=== PATIENT | male | born 1950 | race Caucasian/White ===

== ENCOUNTER 2017-08-18 23:56 | Inpatient (IN) | payer MEDICAID, MEDICARE ==
[~2017-08-18] VITALS: Ht 177.8 cm; Wt 91.2 kg
--- NOTE | 2017-08-19 | NUR ---
[facility] FROM [facility] "ALTERED X24 HOURS". VSS NAD WILL CONTINUE TO MONITOR FOR ANY CHANGES DURING THE SHIFT.
--- NOTE | 2017-08-19 00:36 | NUR ---
PT OFF TO CT/XRAY
--- NOTE | 2017-08-19 00:47 | NUR ---
CALLED NURSING PRE PLANNING ADVISOR AND REQUESTED A TELE BED FOR THIS PT.
[2017-08-19] MEDS ORDERED: LIDOCAINE 2% JEL UROJET 10 ML MM ONE ×3 (00:51→02:30)
[2017-08-19 00:57] LABS: BASOPHILS % (AUTO) 0.2 % (0.0-2.0); HEMATOCRIT 30 % (39-51); HEMOGLOBIN 9.8 g/dL (13.5-17.5); LYMPHOCYTES # (AUTO) 0.4 /CMM (0.8-4.8); LYMPHOCYTES % (AUTO) 3.8 % (20.0-44.0); MEAN CORPUSCULAR HGB CONC 33 g/dl (31.0-36.0); MEAN CORPUSCULAR VOLUME 92 fL (80-96); MONOCYTES # (AUTO) 0.6 /CMM (0.1-1.30); MONOCYTES % (AUTO) 6.2 % (2.0-12.0); NEUTROPHILS # (AUTO) 8.6 /CMM (1.8-8.9); NEUTROPHILS % (AUTO) 89.8 % (43.0-81.0); PLATELET COUNT (AUTO) 293 /CMM (150-450); RDW COEFFICIENT OF VARIATION 15.7 (11.5-15.0); RED BLOOD CELL COUNT(AUTO) 3.26 MIL/uL (4.5-6.0); WHITE BLOOD COUNT (AUTO) 9.6 K/uL (4.3-11.0)
[2017-08-19] MEDS ORDERED: INSU100V7 SQ (01:01)
[2017-08-19] MEDS ORDERED: HYDR-552 PO (01:01)
[2017-08-19] MEDS ORDERED: ACET-2605 PO (01:01)
[2017-08-19] MEDS ORDERED: ACET325T53 PO (01:01)
[2017-08-19] MEDS ORDERED: HEPARIN SQ (01:01)
[2017-08-19] MEDS ORDERED: NITR0.4T48 SL (01:01)
[2017-08-19] MEDS ORDERED: INSU100V27 SQ (01:01)
[2017-08-19 01:11] LABS: INR 1.06 (0.87-1.13)
[2017-08-19 01:19] LABS: APPEARANCE,URINE CLEAR (CLEAR); BILIRUBIN,URINE NEGATIVE (NEGATIVE); BLOOD, URINE TRACE-INTA Ery/uL (NEGATIVE); COLOR,URINE YELLOW (YELLOW); KETONES,URINE NEGATIVE (NEGATIVE); LEUKOCYTE ESTERASE ,URINE NEGATIVE (NEGATIVE); NITRITE, URINE NEGATIVE (NEGATIVE); PROTEIN,URINE 3+ mg/dl (NEGATIVE); UGLUCOSE NEGATIVE (NEGATIVE); UROBILINOGEN,URINE 0.2 EU/dL (0.2)
[2017-08-19 01:19] LABS: ALANINE AMINOTRANSFERASE 38 U/L (12-78); ALBUMIN 3.1 g/dL (3.4-5.0); ALCOHOL, BLOOD < 3 mg/dL (0-0); ALKALINE PHOSPHATASE 113 U/L (46-116); ASPARTATE AMINOTRANSFERASE 58 U/L (15-37); BILIRUBIN,DIRECT 0.4 mg/dL (0.0-0.2); BILIRUBIN,TOTAL 0.7 mg/dL (0.2-1.0); CALCIUM, SERUM 9.5 mg/dL (8.5-10.1); CARBON DIOXIDE 26 mmol/L (21-32); CHLORIDE 106 mmol/L (98-107); CREATININE 3.8 mg/dL (0.6-1.3); GLUCOSE 65 mg/dL (74-106); POTASSIUM 6.1 mmol/L (3.5-5.1); SODIUM SERUM 141 mmol/L (136-145); TOTAL PROTEIN, SERUM 7.3 g/dL (6.4-8.2)
--- NOTE | 2017-08-19 01:20 | NUR ---
1200 CC OF URINE OUT OF IN/OUT CATH. POSSIBLE OBSTRUCTION.
[2017-08-19 01:23] LABS: SALICYLATE 1.8 mg/dL (2.8-20.0); SERUM AMMONIA 21 umol/L (11-32)
[2017-08-19 01:24] LABS: UREA NITROGEN, BLOOD 91 mg/dL (7-18)
[2017-08-19 01:25] LABS: THYROID STIMULATING HORMONE 1.053 uIU/mL (0.358-3.74); TROPONIN I 0.147 ng/mL (0.00-0.056)
[2017-08-19 01:26] LABS: ACETAMINOPHEN 0 ug/ml (10-30)
[2017-08-19 01:33] LABS: BACTERIA,URINE Few /HPF (None Seen); RBC,URINE 0-2 /HPF (0-2); SQUAMOUS EPITHELIAL CELL,UR Rare /HPF (None Seen)
[2017-08-19 01:34] LABS: URINE AMORPHOUS URATE Moderate /HPF (None Seen)
[2017-08-19] MEDS ORDERED: FUROSEMIDE 40 MG/4 ML VIAL IV ONE (02:30)
[2017-08-19] MEDS ORDERED: ASPIRIN 325 MG TABLET PO ONE (02:30)
[2017-08-19] MEDS ORDERED: NITROGLYCERIN PACKET 1 GM PACKET TD ONE (02:30)
[2017-08-19] MEDS ORDERED: FUROSEMIDE 40 MG/4 ML VIAL ONE (02:33)
[2017-08-19] MEDS ORDERED: NITROGLYCERIN PACKET 1 GM PACKET ONE (02:34)
[2017-08-19] MEDS ORDERED: ASPIRIN 81 MG TAB.CHEW ONE (02:34)
--- NOTE | 2017-08-19 02:43 | NUR ---
NEW BROTHERS CATH PLACED PER ORDER FROM JESUS LOVE. 300CC EMPTIED SO FAR. WILL CONTINUE TO MONITOR FOR ANY CHANGES.
--- NOTE | 2017-08-19 02:49 | NUR ---
PT COMFORTABLE IN BED ANSWERING QUESTIONS WHEN SPOKEN TO. PT IS MILDLY CONFUSED STILL
--- NOTE | 2017-08-19 03:14 | NUR ---
REPORT GIVEN TO CHARLIE
[2017-08-19 03:33] VITALS: BP 143/65
[2017-08-19 03:35] VITALS: BP 143/65
--- NOTE | 2017-08-19 03:35 | NUR ---
SAMPLER TESTER OPENING NOTES: RECEIVED PT FROM ER NURSE, PELON. PT APPEARS TO BE LETHARGIC. PT ABLE TO RECITE NAME AND LIMITED RESPONSES ONLY. PT IS A/OX1. PT ON 2LPM VIA NC. PT HAS IV ON L FOREARM #18G AND IS PATENT AND INTACT. PT HAS LEFT LEG IMMOBILIZER. PT HAS BROTHERS CATH AND IS ATTACHED TO DRAINAGE BAG WITH YELLOW URINE DRAINING. PT ALSO HAS NITROBID PATCH ON CHEST. BED ALARM ACTIVATED. PT TO BE PLACED ON TELE BOX. CALL LIGHT WITHIN PT'S REACH. BED KEPT IN LOW, LOCKED POSITION, AND SIDE RAILS X 2UP. WILL CONTINUE TO MONITOR PT.
--- NOTE | 2017-08-19 05:16 | NUR ---
VENETIAN BLIND MECHANIC NOTES: AWAITING FOR ADMITTING ORDERS. SONNY WILSON AWARE. NOTIFIED HER OF FEMUR X RAY FRACTURE AND TROPONIN 0.147
[2017-08-19] MEDS ORDERED: ENOXAPARIN SODIUM 40 MG/0.4 ML DISP.SYRIN SQ SCH (05:30)
[2017-08-19] MEDS ORDERED: MAGNESIUM HYDROXIDE 30 ML UDC PO PRN (05:30)
[2017-08-19] MEDS ORDERED: ZOLPIDEM TARTRATE 5 MG TABLET PO PRN (05:30)
[2017-08-19] MEDS ORDERED: Z GUARD REMEDY 2 OZ OINT TP PRN (05:30)
[2017-08-19] MEDS ORDERED: ACETAMINOPHEN 325 MG TABLET PO PRN (05:30)
[2017-08-19] MEDS ORDERED: IV NS 0.9% 1,000 ML IV PRN (05:30)
[2017-08-19] MEDS ORDERED: ONDANSETRON HCL/PF 4 MG/2 ML VIAL IVP PRN (05:30)
[2017-08-19] MEDS ORDERED: CEFTRIAXONE 1 G VIAL ONE (05:32)
[2017-08-19] MEDS: CEFTRIAXONE 1 G in IV D5W 50 ML IV SCH (05:35)
--- NOTE | 2017-08-19 07:19 | NUR ---
DIGITAL MEASUREMENT ADVISOR CLOSING NOTES: ALL NEEDS WERE ATTENDED AND ANTICIPATED FOR. PT REMAINS TO BE LETHARGIC. PT IS A/OX1. PT KEPT NPO FOR SWALLOW EVAL SCHEDULED TODAY. PT HAS IV AND IS BEING INFUSED WITH NS 75ML/HR. PT HAS BROTHERS CATH AND IS ATTACHED TO DRAINAGE BAG WITH YELLOW URINE DRAINING. OUTPUT WAS 550ML. BED ALARM ACTIVATED. CALL LIGHT WITHIN PT'S REACH. BED KEPT IN LOW, LOCKED POSITION, AND SIDE RAILS X 2UP. ENDORSED TO AM NURSE FOR CHRIS. Addendum: 08/19/17 at 0721 by NAHUM WEN RN PT ON TELE BOX AND READING SHOWS SR 60S WITH BBB.
[2017-08-19 08:00] VITALS: BP 178/81
--- NOTE | 2017-08-19 08:20 | NUR ---
ms rn received on bed, awake,alert, oriented x3,complaining of pain at left leg, s/p fall w/ left lg fracture, immobilizer on, will monitor patient's condition.
--- NOTE | 2017-08-19 09:00 | NUR ---
rn npo at this time, for swallow eval today.
[2017-08-19] MEDS ORDERED: BUMETANIDE INJ 8 MG in IV NS 0.9% 48 ML IV ONE (09:45)
--- NOTE | 2017-08-19 10:36 | NUR ---
WOUND CARE CONSULT: PT PRESENTS WITH MULTIPLE SKIN ISSUES INCLUDING DEEP TISSUE INJURY WHICH IS INTACT TO SACRUM, SCRATCHES TO BUTTOCKS AND THIGHS, RASH TO BUTTOCKS AND PERINEUM AND RAISED AREAS TO BACK AND SHOULDER, PRESENT ON ADMISSION. PT HAS IMMOBILIZER TO LEFT LOWER EXTREMITY. DEFER TO ORTHO FOR LEFT LOWER EXTREMITY. ALL SKIN PROTECTION AND WOUND RECOMMENDATIONS DISCUSSED WITH NURSING STAFF. RADHA ISOFLEX LOW AIRLOSS BED TO BE PLACED. WILL SEE PRN. JOLLEY IN AGREEMENT WITH PLAN OF CARE. CURRENT SACHIN SCORE IS 12. Addendum: 08/19/17 at 1038 by LONNIE BURCH WNDNU Amended: Links added.
--- NOTE | 2017-08-19 11:00 | NUR ---
ms rn swallow eval done, soft diet recommended.
[2017-08-19 11:06] LABS: CREATINE KINASE MB 10.2 ng/mL (0-3.6)
[2017-08-19] MEDS ORDERED: Calcium Gluconate 0.465 MEQ/ML VIAL IV ONE (14:00)
[2017-08-19] MEDS ORDERED: DEXTROSE 50%-WATER 50 ML DISP.SYRIN IVP ONE (14:00)
[2017-08-19] MEDS ORDERED: SODIUM BICARBONATE SYR 50 MEQ/50 ML DISP.SYRIN IV ONE (14:00)
[2017-08-19] MEDS ORDERED: INSULIN REGULAR, HUMAN 100 UNIT/ML 10 ML VIAL IV ONE (14:00)
--- NOTE | 2017-08-19 14:00 | NUR ---
ms bartlett received orders from dr. lei and carried out.
[2017-08-19] MEDS ORDERED: Calcium Gluconate 1GM/10ML 4.65 MEQ in IV D5W 50 ML IV ONE (14:30)
[2017-08-19] MEDS: HYDROCODONE/APAP 5/325MG 1 EACH TABLET PO PRN (15:37)
[2017-08-19] MEDS: CLOTRIMAZOLE 1% 15 GM TUBE TP SCH ×2 (15:40→18:28)
[2017-08-19 16:00] VITALS: BP 163/61
[2017-08-19 17:44] LABS: CALCIUM, SERUM 9.3 mg/dL (8.5-10.1); CREATININE 3.6 mg/dL (0.6-1.3); POTASSIUM 4.5 mmol/L (3.5-5.1)
--- NOTE | 2017-08-19 18:20 | NUR ---
ms rn on bed,no distress noted, labs trending down, k - 4.5 now,all needs attended.
--- NOTE | 2017-08-19 19:40 | NUR ---
ROOF MECHANIC INITIAL NOTE PT IS IN BED SLEEPING, AROUSES TO TOUCH AND LIGHT PAIN. A/O X2 LETHARGIC. WHEN SLEEPING HE HAS NO SIGNS OF SOB OR DISTRESS ONCE WOKEN UP HE SHIVERS AND STARTS BREATHING HEAVY BUT NO DISTRESS. DENIES PAIN AT THIS TIME. PT PULLED OUT HIS RIGHT FOREARM IV, LEFT FOREARM IS INTACT AND PATENT WITH BUMEX INFUSING. LEFT LEG HAS IMMOBILIZER, WITH SWELLING AND REDNESS IN FOOT. ELEVATED LEG AND APPLIED ICE. BED IS IN LOW AND LOCKED POSITION, CALL LIGHT WITHIN REACH. WILL CONTINUE TO MONITOR PT
[2017-08-19 20:00] VITALS: BP 139/71
[2017-08-19 20:47] LABS: CREATININE, URINE 35.8 MG/DL (30.0-125.0)
[2017-08-20] VITALS: BP 158/73
[2017-08-20] MEDS: HYDROCODONE/APAP 5/325MG 1 EACH TABLET PO PRN ×4 (00:06→22:22)
[2017-08-20 04:00] VITALS: BP 152/69
[2017-08-20] MEDS: CEFTRIAXONE 1 G in IV D5W 50 ML IV SCH (04:32)
--- NOTE | 2017-08-20 06:46 | NUR ---
HEAD UP OPERATOR HELPER CLOSING NOTE PT IS IN BED SLEEPING, AROUSES TO TOUCH. PT WAS MORE ALERT DURING THE NIGHT PROGRESSED, ABLE TO HOLD HIS OWN CUP FOR WATER AND INDEPENDENT WITH WATER INTAKE. TELE MONITOR SHOWS SR 62 WITH PAC, PVC AND BBB. BROTHERS CATHETER IS INTACT AND DRAINING. NO ACUTE CHANGES THROUGHOUT THE SHIFT. ALL NEEDS WERE ANTICIPATED AND MET. BED IS IN LOW AND LOCKED POSITION, CALL LIGHT WITHIN REACH. WILL ENDORSE TO DAYSHIFT
[2017-08-20 06:51] LABS: BASOPHILS % (AUTO) 0.2 % (0.0-2.0); HEMATOCRIT 28 % (39-51); HEMOGLOBIN 9.4 g/dL (13.5-17.5); LYMPHOCYTES # (AUTO) 0.6 /CMM (0.8-4.8); LYMPHOCYTES % (AUTO) 6.2 % (20.0-44.0); MEAN CORPUSCULAR HGB CONC 33 g/dl (31.0-36.0); MEAN CORPUSCULAR VOLUME 91 fL (80-96); MONOCYTES # (AUTO) 0.8 /CMM (0.1-1.30); NEUTROPHILS # (AUTO) 7.5 /CMM (1.8-8.9); NEUTROPHILS % (AUTO) 84.6 % (43.0-81.0); PLATELET COUNT (AUTO) 262 /CMM (150-450); RDW COEFFICIENT OF VARIATION 15.9 (11.5-15.0); RED BLOOD CELL COUNT(AUTO) 3.09 MIL/uL (4.5-6.0); WHITE BLOOD COUNT (AUTO) 8.9 K/uL (4.3-11.0)
--- NOTE | 2017-08-20 07:11 | NUR ---
MS RN OPENING NOTES RECEIVED PT FROM NIGHTSHIFT NURSE IN STABLE CONDITION. PT IS A/O X2-3 (PERSON, PLACE, TIME) WITH PERIODS OF FORGETFULNESS. NO SOB OR SIGNS OF ACUTE DISTRESS. BREATHING IS EVEN AND UNLABORED. PT IS ON 2L AND SATING WELL. HE DOES COMPLAIN OF AN ACHING PAIN IN HIS LEFT KNEE RATED 7/10. WILL ADMINISTER PRN PAIN MEDICATION. LEG IMMOBILIZER NOTED. EXTREMITIES OFFLOADED. IV TO LEFT FA NOTED TO BE PATENT AND INTACT. NO REDNESS OR SIGNS OF INFILTRATION NOTED. BROTHERS CATHETER NOTED TO BE DRAINING CLEAR YELLOW URINE. BROTHERS IN PLACE FOR URINARY RETENTION AND I&O MONITORING PER NIGHTSHIFT. BED IN LOW LOCKED POSITION, SIDE RAILS UP X3, CALL LIGHT WITHIN PT'S REACH, BED ALARM ON FOR SAFETY. WILL CONTINUE TO MONITOR
[2017-08-20 07:15] LABS: ALBUMIN 2.9 g/dL (3.4-5.0); BILIRUBIN,TOTAL 0.9 mg/dL (0.2-1.0); CALCIUM, SERUM 9.2 mg/dL (8.5-10.1); CREATININE 3.5 mg/dL (0.6-1.3); MAGNESIUM 2.4 mg/dL (1.8-2.4); PHOSPHORUS 5.1 mg/dL (2.5-4.9); POTASSIUM 4.8 mmol/L (3.5-5.1); TOTAL PROTEIN, SERUM 6.9 g/dL (6.4-8.2)
[2017-08-20 08:00] VITALS: BP 160/71
[2017-08-20] MEDS ORDERED: BUMETANIDE INJ 8 MG in IV NS 0.9% 48 ML IV ONE (08:30)
[2017-08-20 08:54] LABS: TROPONIN I 0.137 ng/mL (0.00-0.056)
[2017-08-20] MEDS ORDERED: ENOXAPARIN SODIUM 40 MG/0.4 ML DISP.SYRIN SQ SCH (09:00)
[2017-08-20] MEDS: CLOTRIMAZOLE 1% 15 GM TUBE TP SCH ×2 (09:14→18:25)
[2017-08-20 13:13] LABS: *SPE A/G RATIO 0.9 (0.7-1.7); *SPE ALPHA-1-GLOBULIN 0.4 g/dL (0.0-0.4); *SPE ALPHA-2-GLOBULIN 0.9 g/dL (0.4-1.0); *SPE GLOBULIN, TOTAL 3.5 g/dL (2.2-3.9); *SPE M-SPIKE Not Observed g/dL (Not Observed); *SPEGAMMA GLOBULIN 1.3 g/dL (0.4-1.8)
[2017-08-20 15:32] VITALS: BP 155/69
--- NOTE | 2017-08-20 18:29 | NUR ---
MS RN CLOSING NOTES PT REMAINS STABLE. NO ACUTE CHANGES IN CONDITION DURING SHIFT. ALL NEEDS WERE MET AND ORDERS CARRIED OUT ACCORDINGLY. ALL DUE MEDS GIVEN. WOUND AND SKIN CARE RENDERED ORDERED. PT WAS KEPT CLEAN AND DRY THROUGHOUT. HE WAS REPOSITIONED Q2HRS PER PROTOCOL. SAFETY MEASURES REMAIN IN PLACE. WILL ENDORSE TO NIGHTSHIFT NURSE FOR CHRIS
--- NOTE | 2017-08-20 19:50 | NUR ---
RN OPENING NOTES RECEIVED REPORT FROM DAYSHIFT RN AFSATU. NO S/S OF ACUTE DISTRESS OR SOB NOTED. NO C/O PAIN AT THIS TIME. Pt IS A/OX2-3, SERBIAN SPEAKING, VERBAL, ABLE TO MAKE NEEDS KNOWN.BROTHERS CATHETER IN PLACE. IV ACCESS ON LFA #18G, SL. LT LEG IMMOBILIZER ON. SAFETY MEASURES IN PLACE. BED LOW, LOCKED, HOB ELEVATED, SIDE RAILS UP, BED SIDE TABLE AND CALL LIGHT WITHIN REACH. WILL CONTINUE TO MONITOR Pt THROUGHOUT THE NIGHT FOR SAFETY.
[2017-08-20 20:00] VITALS: BP 132/68
[2017-08-21] MEDS: CEFTRIAXONE 1 G in IV D5W 50 ML IV SCH (05:41)
[2017-08-21 06:10] LABS: BASOPHILS % (AUTO) 0.4 % (0.0-2.0); EOSINOPHILS % (AUTO) 0.9 % (0.0-6.0); HEMATOCRIT 26 % (39-51); HEMOGLOBIN 8.7 g/dL (13.5-17.5); LYMPHOCYTES # (AUTO) 0.7 /CMM (0.8-4.8); LYMPHOCYTES % (AUTO) 8.5 % (20.0-44.0); MEAN CORPUSCULAR HGB CONC 34 g/dl (31.0-36.0); MEAN CORPUSCULAR VOLUME 90 fL (80-96); MONOCYTES # (AUTO) 0.9 /CMM (0.1-1.30); MONOCYTES % (AUTO) 10.9 % (2.0-12.0); NEUTROPHILS # (AUTO) 6.7 /CMM (1.8-8.9); NEUTROPHILS % (AUTO) 79.3 % (43.0-81.0); PLATELET COUNT (AUTO) 236 /CMM (150-450); RDW COEFFICIENT OF VARIATION 15.5 (11.5-15.0); RED BLOOD CELL COUNT(AUTO) 2.88 MIL/uL (4.5-6.0); WHITE BLOOD COUNT (AUTO) 8.5 K/uL (4.3-11.0)
[2017-08-21 06:32] LABS: ALBUMIN 2.6 g/dL (3.4-5.0); BILIRUBIN,TOTAL 0.7 mg/dL (0.2-1.0); CALCIUM, SERUM 8.4 mg/dL (8.5-10.1); CREATININE 3.2 mg/dL (0.6-1.3); MAGNESIUM 1.9 mg/dL (1.8-2.4); PHOSPHORUS 4.1 mg/dL (2.5-4.9); POTASSIUM 4.4 mmol/L (3.5-5.1); TOTAL PROTEIN, SERUM 6.3 g/dL (6.4-8.2)
--- NOTE | 2017-08-21 06:50 | NUR ---
RN CLOSING NOTES NO SIGNIFICANT CHANGES IN Pt's CONDITION. Pt REMAINS STABLE AT THIS TIME. NO S/S OF ACUTE DISTRESS OR SOB NOTED DURING THE SHIFT. Pt SLEPT WELL WITH EVEN AND UNLABORED RESPIRATIONS. ALL NEEDS MET AND ATTENDED TO. SAFETY MEASURES IN PLACE. WILL ENDORSE TO DAYSHIFT RN FOR Pt's CHRIS.
[2017-08-21 08:00] VITALS: BP 149/70
--- NOTE | 2017-08-21 08:00 | NUR ---
MS RN OPENING NOTES RECEIVED PT FROM NIGHTSHIFT NURSE IN STABLE CONDITION. PT IS A/O X2-3 (PERSON, PLACE, TIME) WITH PERIODS OF FORGETFULNESS. NO SOB OR SIGNS OF ACUTE DISTRESS. BREATHING IS EVEN AND UNLABORED. PT IS ON 2L AND SATING WELL. HE DENIES PAIN AT THIS TIME. LEG IMMOBILIZER NOTED. EXTREMITIES OFFLOADED. IV TO LEFT FA NOTED TO BE PATENT AND INTACT. NO REDNESS OR SIGNS OF INFILTRATION NOTED. BROTHERS CATHETER NOTED TO BE DRAINING CLEAR YELLOW URINE. BROTHERS IN PLACE FOR URINARY RETENTION AND I&O MONITORING PER NIGHTSHIFT. BED IN LOW LOCKED POSITION, SIDE RAILS UP X3, CALL LIGHT WITHIN PT'S REACH, BED ALARM ON FOR SAFETY. WILL CONTINUE TO MONITOR
[2017-08-21] MEDS: CLOTRIMAZOLE 1% 15 GM TUBE TP SCH ×2 (08:41→17:03)
[2017-08-21] MEDS: HYDROCODONE/APAP 5/325MG 1 EACH TABLET PO PRN ×2 (09:52→19:55)
[2017-08-21] MEDS ORDERED: BUMETANIDE INJ 12 MG in IV D5W 72 ML IV ONE (10:00)
[2017-08-21] MEDS ORDERED: DEXTROSE 50%-WATER 50 ML DISP.SYRIN IV PRN (11:30)
[2017-08-21] MEDS: BLOOD SUGAR DIAGNOSTIC 1 EACH STRIP IN SCH ×3 (12:12→21:47)
[2017-08-21] MEDS: INSULIN REGULAR, HUMAN 100 UNIT/ML 3 ML VIAL SQ PRN ×3 (12:14→21:52)
--- NOTE | 2017-08-21 15:19 | NUR ---
MS RN NOTES: O2 TITRATION PT WAS TITRATED OFF 2L ORDERED BY DR. MATHEWS. HE WAS ABLE TO SUSTAIN AN O2 SAT GREATER THAN 92% AFTER 10 MINUTES. HOWEVER UPON AFTERNOON VITALS, HE WAS OBSERVED TO BE SATING @ 90-91%. HE WAS PLACED ON 1L VIA NC AND IS NOT SATING AT 95-96%
[2017-08-21 15:52] VITALS: BP 149/67
--- NOTE | 2017-08-21 18:34 | NUR ---
MS RN CLOSING NOTES PT REMAINS STABLE. NO ACUTE CHANGES IN CONDITION DURING SHIFT. ALL NEEDS WERE MET AND ORDERS CARRIED OUT ACCORDINGLY. ALL DUE MEDS GIVEN. WOUND AND SKIN CARE RENDERED ORDERED. PT WAS KEPT CLEAN AND DRY THROUGHOUT. HE WAS REPOSITIONED Q2HRS PER PROTOCOL. IV REMAIN PATENT AND INTACT. PT TOLERATING BUMEX INFUSION WELL. HE HAD A TOTAL URINE OUTPUT OF 1425CC. SAFETY MEASURES REMAIN IN PLACE. WILL ENDORSE TO NIGHTSHIFT NURSE FOR CHRIS
--- NOTE | 2017-08-21 20:25 | NUR ---
RECIEVED MR. GERONIMO ALERT AND ORIENTATED STATED HE WANTED NORCO FOR LEFT ANKLE PAIN, NORCO GIVEN AND FOLLOWED BY A GLASS OF H20. HE IS SMILING AND CONVERSING IN GOOD SPIRITS. BUMEX GTTT ON A PUMP 5ML/HR ORDERED BROTHERS DRAINAGE CLEAR YELLOW SACRAL AREA RED NOTED FOAM DRESSING ON. LEFT FOOT TURNED OUTWARD PATIENT REFUSING TO ALLOW ME TO STRAIGHTEN HIS FOOT/JOHNNIE TO A GOOD ALIGNMENT, STATED TOO MUCH PAIN TO HAVE IT TURNED. FOOT AND THE ANKLE 3+ EDEMA FOOT IS WARM, THE IMMOBOLIZER IS ON AND WS CHECKED TO MAKE LYLY NOT CONSTRICTING BLOOD FLOW
[2017-08-21 20:39] VITALS: BP 155/75
[2017-08-22] MEDS: HYDROCODONE/APAP 5/325MG 1 EACH TABLET PO PRN ×2 (04:06→20:15)
--- NOTE | 2017-08-22 04:22 | NUR ---
CLOSING NOTES: MR. GERONIMO WAS AWAKE WATCHING SPORT ON TV THRU THE NIGHT. HE ENJOYS COMPANY AND CONVERSING WITH THE STAFF. ALWAYS PLEASENT. HE IS UNCOOPERATIVE IN ALLOWING THE STAFF ASSIST IN KEEPING HIS LEFT LEG IN GOOD ALIGNMENT, STATES IT HURTS TOO MUCH TO MOVE. IMMOBILIZER KEPT ON THRU THE SHIFT. MEDICATED X2 WITH PO ANALGESIC AND EFFECT FOR PAIN RELIEF
[2017-08-22 06:01] LABS: BASOPHILS % (AUTO) 0.3 % (0.0-2.0); EOSINOPHILS % (AUTO) 1.6 % (0.0-6.0); HEMATOCRIT 28 % (39-51); HEMOGLOBIN 9.2 g/dL (13.5-17.5); LYMPHOCYTES # (AUTO) 0.8 /CMM (0.8-4.8); LYMPHOCYTES % (AUTO) 8.7 % (20.0-44.0); MEAN CORPUSCULAR HGB CONC 34 g/dl (31.0-36.0); MEAN CORPUSCULAR VOLUME 90 fL (80-96); MONOCYTES # (AUTO) 1.1 /CMM (0.1-1.30); MONOCYTES % (AUTO) 12.5 % (2.0-12.0); NEUTROPHILS # (AUTO) 6.9 /CMM (1.8-8.9); NEUTROPHILS % (AUTO) 76.9 % (43.0-81.0); PLATELET COUNT (AUTO) 245 /CMM (150-450); RDW COEFFICIENT OF VARIATION 15.4 (11.5-15.0); RED BLOOD CELL COUNT(AUTO) 3.06 MIL/uL (4.5-6.0)
[2017-08-22] MEDS: INSULIN REGULAR, HUMAN 100 UNIT/ML 3 ML VIAL SQ PRN ×4 (06:25→21:33)
[2017-08-22 06:26] LABS: ALBUMIN 2.6 g/dL (3.4-5.0); BILIRUBIN,TOTAL 1.1 mg/dL (0.2-1.0); CALCIUM, SERUM 8.5 mg/dL (8.5-10.1); CREATININE 2.6 mg/dL (0.6-1.3); MAGNESIUM 1.7 mg/dL (1.8-2.4); PHOSPHORUS 2.9 mg/dL (2.5-4.9); POTASSIUM 3.7 mmol/L (3.5-5.1); TOTAL PROTEIN, SERUM 6.3 g/dL (6.4-8.2)
[2017-08-22] MEDS: BLOOD SUGAR DIAGNOSTIC 1 EACH STRIP IN SCH ×4 (06:33→21:35)
--- NOTE | 2017-08-22 07:50 | NUR ---
RN OPENING NOTES RECEIVED PATIENT AWAKE ALERT AND VERBALLY RESPONSIVE, ABLE TO MAKE NEEDS KNOWN. PATIENT NOTED WITH PERIODS OF FORGETFULNESS. RESPIRATIONS EVEN AND UNLABORED, IN NO APPARENT PAIN OR DISCOMFORT AT THIS TIME. IV SITE PATENT AND INTACT, NO REDNESS OR INFILTRATION NOTED.CALL LIGHT WITHIN EASY REACH, BED ALARM ON. PT KEPT CLEAN DRY AND COMFORTABLE, WILL CONTINUE TO MONITOR.
[2017-08-22 08:00] VITALS: BP 158/82
[2017-08-22] MEDS: FUROSEMIDE 80 MG TABLET PO SCH (08:43)
[2017-08-22] MEDS: POTASSIUM CHLORIDE 20 MEQ TAB.PRT.SR PO SCH ×2 (08:43→09:43)
[2017-08-22] MEDS: Magnesium 1GM/D5W 100ML PREMIX 100 ML IV SCH ×2 (08:44→12:03)
[2017-08-22] MEDS: CLOTRIMAZOLE 1% 15 GM TUBE TP SCH ×2 (08:47→16:54)
[2017-08-22 16:00] VITALS: BP 141/78
--- NOTE | 2017-08-22 18:53 | NUR ---
RN CLOSING NOTES PATIENT AWAKE ALERT AND VERBALLY RESPONSIVE, ABLE TO MAKE NEEDS KNOWN. PATIENT NOTED WITH PERIODS OF FORGETFULNESS. RESPIRATIONS EVEN AND UNLABORED, IN NO APPARENT PAIN OR DISCOMFORT AT THIS TIME. IV SITE PATENT AND INTACT, NO REDNESS OR INFILTRATION NOTED.CALL LIGHT WITHIN EASY REACH, BED ALARM ON. PT KEPT CLEAN DRY AND COMFORTABLE, WILL CONTINUE TO MONITOR AND ENDORSE FOR CONTINUITY OF CARE
--- NOTE | 2017-08-22 19:52 | NUR ---
RECIEVING NOTES: ALERT AND ORIENTATED.SMILING AND PLEASENT. WATCHING TV HE ENJOYS CONVERSING AND COMPANY. LEFT LEG ELEVATED ON A PILLOW NOTED BOTH FEET 2+ EDEMA. LEFT LEG IMMOBILIZER ON. EYE GLASSES ON
[2017-08-22 20:00] VITALS: BP_SYST 108; BP_SYST 166; BP_DIAS 54; BP_DIAS 76
[2017-08-22 20:29] VITALS: BP 166/76
--- NOTE | 2017-08-22 21:51 | NUR ---
FOUND MR. GERONIMO WITH HIS IMMOBILIZER ALL STRAPPS UNDONE AND WHEN I QUESTIONED HIM WHAT HAPPEN HERE! hE STATED HIS LEG WAS ITCHING AND HE WANTED TO TAKE THE STRAPS OFF FOR A WHILE. PUT LOTION ON HIS LEFT LEG AND HEEL AND ALLOWED THE LOTION TO DRY THEN RESTRAPPED THE IMMOBILIZER ON AND PLACED HIS LEG UP ON A PILLOW. HE REFUSED TO ALLOW ME TO TURN HIS LEG/FOOT TO HAVE STRAIGHT ALIGNMENT.
--- NOTE | 2017-08-23 04:36 | NUR ---
CLOSING NOTES: MR. GERONIMO SLEPT 10 HOURS OF THIS 12 HOUR SHIFT. AWAKENED WHEN NURSE WOULD REPOSITION HIS LEFT LEG IF FALLEN OFF THE PILLOW, OR IF I WAS CKECKING HIS PEDAL PULSE, BUT HE'D FALL BACK TO SLEEP EASILY. NORCO FOR PAIN ONE TAB IS EFFECTIVE. FOLEU CATHETER OUTPUT THIS 12 HOURS 1500 ML FROM THE BROTHERS CLEAR YELLOW
[2017-08-23] MEDS: INSULIN REGULAR, HUMAN 100 UNIT/ML 3 ML VIAL SQ PRN ×2 (06:11→11:59)
[2017-08-23] MEDS: BLOOD SUGAR DIAGNOSTIC 1 EACH STRIP IN SCH ×2 (06:12→11:56)
[2017-08-23 06:24] LABS: CALCIUM, SERUM 8.5 mg/dL (8.5-10.1); CREATININE 2.3 mg/dL (0.6-1.3)
[2017-08-23] MEDS: HYDROCODONE/APAP 5/325MG 1 EACH TABLET PO PRN ×2 (06:43→11:15)
[2017-08-23 08:00] VITALS: BP 166/70
[2017-08-23] MEDS: FUROSEMIDE 80 MG TABLET PO SCH (08:26)
[2017-08-23] MEDS: CLOTRIMAZOLE 1% 15 GM TUBE TP SCH (08:27)
[2017-08-23] MEDS ORDERED: FURO-144 PO (11:16)
--- NOTE | 2017-08-23 15:45 | NUR ---
SOAP MAKER NOTES PATIENT AWAKE ALERT AND VERBALLY RESPONSIVE, ABLE TO MAKE NEEDS KNOWN. PATIENT NOTED WITH PERIODS OF FORGETFULNESS. RESPIRATIONS EVEN AND UNLABORED, IN NO APPARENT PAIN OR DISCOMFORT AT THIS TIME. IV SITE AND ID BAND REMOVED WITH NO ASE NOTED.MULTIPLE PICTURES OF SKIN TAKEN AND PLACED IN CHART, ALL DISCHARGE INSTRUCTIONS REVIEWED WITH PATIENT AND SNF RN WITH NOTED VERBAL UNDERSTANDING CALLED PATIENT'S BROTHER TO NOTIFY PER PT REQUEST WITH NO ANSWER AND UNABLE TO LEAVE MESSAGE PT STATES WILL REATTEMPT TO CALL FROM SNF. REPORT GIVEN TO TRANSPORT FOR CONTINUITY OF CARE, PT DISCHARGED IN STABLE CONDITION
[2017-08-26 09:13] LABS: CALCITRIOL VIT D,1, 25 DIHYDRO 17.6 pg/mL (19.9-79.3)
== END 2017-08-23 15:45 | DRG 190 ==
LOC: ER 08-19 00:03 → TELE 08-19 03:36 → MED 08-20 09:05
PROVIDERS: ADMIT Nurse Practitioner Acute Care
DX: I21.4 Non-ST elevation (NSTEMI) myocardial infarction (principal); N17.0 Acute kidney failure with tubular necrosis; G93.41 Metabolic encephalopathy; I50.33 Acute on chronic diastolic (congestive) heart failure; I13.0 Hypertensive heart and chronic kidney disease with heart failure and stage 1 through stage 4 chronic kidney disease, or unspecified chronic kidney disease; S72.402A Unspecified fracture of lower end of left femur, initial encounter for closed fracture; E11.22 Type 2 diabetes mellitus with diabetic chronic kidney disease; E87.5 Hyperkalemia; N18.9 Chronic kidney disease, unspecified; I25.10 Atherosclerotic heart disease of native coronary artery without angina pectoris; J44.9 Chronic obstructive pulmonary disease, unspecified; Z95.1 Presence of aortocoronary bypass graft; Z79.4 Long term (current) use of insulin; Z79.899 Other long term (current) drug therapy; F32.9 Major depressive disorder, single episode, unspecified; D63.8 Anemia in other chronic diseases classified elsewhere; A80.9 Acute poliomyelitis, unspecified; D64.9 Anemia, unspecified; W19.XXXA Unspecified fall, initial encounter; Y92.129 Unspecified place in nursing home as the place of occurrence of the external cause
CPT/HCPCS: 36415; 70450-TC; 71045-TC; 72170-TC; 73552; 73590-TC; 76770-TC; 80048-TC; 80053-TC; 80061-TC; 80076-TC; 80305; 81000-TC; 82140-TC; 82306; 82550-TC; 82553-TC; 82570-TC; 82652; 82728-TC; 82962-TC; 83540-TC; 83735-TC; 83970; 84100-TC; 84155; 84165; 84439-TC; 84443-TC; 84484-TC; 85025-TC; 85730-TC; 87040-TC; 87081-TC; 87086-TC; 92611-TC; 93307-TC; 94799-TC; A4216; A4606; A6402; G0480; J0610; J0696; J1650; J1815; J1940; J3475; J3490; J7030; J7040; J7060; Z7610